=== PATIENT | female | born 1955 ===

== ENCOUNTER 2017-09-27 12:43 | Emergency (ER) | payer SELFPAY ==
[2017-09-27 12:43] VITALS: BMI 25.7
[2017-09-27 13:02] VITALS: TEMP 98.2; O2SAT 98
[2017-09-27] MEDS ORDERED: Naproxen 550 mg Tab PO STA (13:37)
[2017-09-27] MEDS ORDERED: Naproxen 550 mg Tab PO ONE (13:48)
--- NOTE | 2017-09-27 13:49 | C.PDOC ---
History Of Present Illness 61 y/o female presented to the ED with various complaints. Patient c/o of ear pain, right arm pain, right neck pain for multiple weeks. Patient states the pain starts from the lower neck and goes down to the lower arm. Patient reports taking Tylenol for symptoms. Patient denies any trauma to the area, numbness, weakness. Patient also denies visiting a doctor prior to this visit. Of note, HPI and ROS is limited because patient is a poor historian. Information was obtained by a bag machine operator helper. 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 History/Exam Limitations: other (patient is a poor historian) Onset/Duration Of Symptoms: Days Current Symptoms Are (Timing): Still Present Past Medical History Reviewed: Historical Data, Nursing Documentation, Vital Signs Vital Signs: Last Vital Signs Temp 98.2 F 09/27/17 13:00 Pulse 78 09/27/17 14:09 Resp 16 09/27/17 14:09 BP 149/85 09/27/17 14:09 Pulse Ox 98 09/27/17 14:10 Surgical History: No Surg Hx Family History: States: No Known Family Hx - Social History Hx Alcohol Use: No Hx Substance Use: No - Immunization History Hx Tetanus Toxoid Vaccination: No Hx Influenza Vaccination: No Hx Pneumococcal Vaccination: No Review Of Systems Constitutional: Negative for: Weakness Musculoskeletal: Positive for: Neck Pain, Arm Pain Neurological: Negative for: Weakness, Numbness Physical Exam - Physical Exam Appears: Non-toxic, No Acute Distress Skin: Warm, Dry Head: Atraumatic, Normacephalic, Tenderness (Right TMJ tenderness) Eye(s): bilateral: Normal Inspection Ear(s): Bilateral: Normal Oral Mucosa: Moist Throat: Normal, No Erythema, No Exudate Neck: Normal ROM, No Midline Cervical Tenderness, No Paracervical Tenderness, Supple Chest: Symmetrical Cardiovascular: Rhythm Regular Respiratory: Normal Breath Sounds Extremity: Normal ROM (FROM of right upper extremity), No Tenderness, No Deformity, No Swelling Pulses: Right Radial: Normal Neurological/Psych: Oriented x3, Normal Motor, Normal Sensation Gait: Steady ED Course And Treatment O2 Sat by Pulse Oximetry: 98 (RA) Pulse Ox Interpretation: Normal Progress Note: Patient was given Naproxen 550mg PO for pain relief. Disposition - Disposition Referrals: [facility] [Outside] [facility] [Outside] Holger Blanchard MD [Staff Provider] - Gabe Aguiar MD [Non-Staff] - Disposition: HOME/ ROUTINE Disposition Time: 02:00 Condition: STABLE Additional Instructions: please follow up with your doctor/clinic. delilah mahmood need additional testing as an outpatient. return to er with any worsening symptoms or concerns. Prescriptions: Naproxen [Naprosyn] 500 mg PO BID PRN #14 tablet PRN Reason: Pain, Mild (1-3) Instructions: Temporomandibular Joint (TMJ) Disorders, Radiculopathy Forms: [employer] (Romanian) Print Language: MARTINIQUAIS - Clinical Impression Clinical Impression: Ear pain, TMJ arthralgia - Scribe Statement The provider has reviewed the documentation as recorded by the Jenny Younged Provider Attestation: All medical record entries made by the Jenny were at my direction and personally dictated by me. I have reviewed the chart and agree that the record accurately reflects my personal performance of the history, physical exam, medical decision making, and the department course for this patient. I have also personally directed, reviewed, and agree with the discharge instructions and disposition.
[2017-09-27 14:10] VITALS: BP 149/85; PULSE 78; RESP 16
== END 2017-09-27 14:09 | disposition home or self-care (01) ==
LOC: C.ER 12:43
DX: H92.09 Otalgia, unspecified ear (principal); M26.621 Arthralgia of right temporomandibular joint

== ENCOUNTER 2018-03-16 08:59 | Outpatient (CLI) | payer SELFPAY | END 2018-03-16 09:00 | disposition home or self-care (01) | LOC: C.RADIC 08:59 | DX: R59.0 Localized enlarged lymph nodes (principal); M25.511 Pain in right shoulder ==

== ENCOUNTER 2018-04-22 09:28 | Outpatient (CLI) | payer SELFPAY | END 2018-04-22 09:29 | disposition home or self-care (01) | LOC: C.RADH 09:28 | DX: R76.12 Nonspecific reaction to cell mediated immunity measurement of gamma interferon antigen response without active tuberculosis (principal) ==

== ENCOUNTER → 2018-06-13 | Outpatient (CLI) | payer SELFPAY | END | disposition home or self-care (01) | LOC: C.USIC 12:54 | DX: N81.4 Uterovaginal prolapse, unspecified (principal) ==